=== PATIENT | female | born 1955 | race Caucasian/White ===

== ENCOUNTER 2024-06-03 07:39 | Outpatient (OUT) | payer MEDICARE, OTHER, SELFPAY ==
[2024-06-03 07:58] LABS: Basophils Absolute Auto 0.1 10^3/uL (0.0-0.1); Basophils Percent Auto 0.8 % (0.2-2.0); Eosinophils Absolute Auto 0.9 10^3/uL (0.0-0.7); Eosinophils Percent Auto 7.1 % (0.9-7.0); Hematocrit 41.1 % (36.0-48.0); Hemoglobin 12.9 g/dL (12.0-16.0); Immature Granulocytes Abs Auto 0.09 10^3/uL (0.00-0.03); Immature Granulocytes Pct Auto 0.7 % (0.0-0.5); Lymphocytes Absolute Auto 3.8 10^3/uL (1.2-3.8); Lymphocytes Percent Auto 31.5 % (20.5-60.0); Mean Corpuscular HGB Conc 31.4 g/dL (29.9-35.2); Mean Corpuscular Hemoglobin 28.7 pg (26.7-34.0); Mean Corpuscular Volume 91.3 fL (81.0-99.0); Mean Platelet Volume 8.7 fL (9.5-13.5); Monocytes Absolute Auto 0.8 10^3/uL (0.3-0.8); Monocytes Percent Auto 6.3 % (1.7-12.0); Neutrophils Absolute Auto 6.5 10^3/uL (1.4-6.5); Neutrophils Percent Auto 53.6 % (43.0-75.0); Platelet Count 280 10^3/uL (150-450); Red Cell Distribution Width 13.2 % (11.0-15.0); White Blood Count 12.1 10^3/uL (4.0-11.0)
[2024-06-03 08:20] LABS: Estimated Average Glucose 143 mg/dL; Glycohemoglobin A1C 6.6 % (4.5-6.2)
[2024-06-03 09:00] LABS: Alanine Aminotransferase 27 U/L (14-59); Albumin Level 3.8 g/dL (3.4-5.0); Alkaline Phosphatase 81 U/L (46-116); Anion Gap 12.8; Aspartate Amino Transferase 15 U/L (15-37); BUN Creatinine Ratio 14.5; Bilirubin Total 0.3 mg/dL (0.2-1.0); Chloride 104 mmol/L (98-107); Chol HDL Ratio 4.7; Cholesterol 217 mg/dL (<=200); Estimated GFR (African America >60 (>=60); Estimated GFR (Non-African Ame >60 (>=60); Globulin 3.9 g/dL; Glucose 137 mg/dL (74-106); HDL Cholesterol 46 mg/dL (40-60); Potassium 3.8 mmol/L (3.5-5.1); Sodium 140 mmol/L (136-145); Thyroid Stimulating Hormone 2.176 uIU/mL (0.358-3.740); Total Protein 7.7 g/dL (6.4-8.2); Triglycerides 139 mg/dL (<=150); VLDL CHOLESTEROL 27.8 mg/dL
== END 2024-06-03 07:40 | disposition home or self-care (01) ==
LOC: LAB 07:39
PROVIDERS: PCP Family Medicine; Visit Provider Family Medicine
DX: K21.9 Gastro-esophageal reflux disease without esophagitis (principal); E11.9 Type 2 diabetes mellitus without complications; H61.20 Impacted cerumen, unspecified ear; M25.50 Pain in unspecified joint; E78.5 Hyperlipidemia, unspecified; E03.9 Hypothyroidism, unspecified; R53.83 Other fatigue
CPT/HCPCS: 36415; 80053; 80061; 83036; 84439; 84443; 85025

== ENCOUNTER 2025-07-07 06:38 | Outpatient (OUT) | payer MEDICARE, OTHER, SELFPAY ==
--- OUTSIDE RECORDS SUMMARY | 2025-06-28 09:45 | XMS_ITS ---
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 Name Role Phone Ike Flores Primary Care Provider Allergies Allergen (clinical drug ingredient) Drug/Non Drug Allergy documented on EMR Reaction Allergy Type Onset Date Status Steroids steroids (uncoded) Unknown Allergy A ctive EPINEPHrine Unknown Drug Allergy Activ e erythromycin Erythromycin Unknown Drug Allergy A ctive Keflex Unknown Drug Allergy Active bacitracin Bacitracin Unknown Drug Allergy Activ e prednisone Prednisone red skin syndrome Drug Allergy Active Substance with sulfonamide structure and antibacterial mechanism of action (substance) Sulfa Antibiotics eyes swell shut Drug Allergy Active diclofenac Diclofenac hand swelling Drug Allergy A ctive Penicillin Unknown Drug Allergy Active Paxlovid Hives Drug Allergy Active REASON FOR VISIT yearly wellness exam, Follow Up- Ear Infection (Left Side) Medications Medication SIG (Take, Route, Frequency, Duration) Notes Start Date End Date Status Tylenol Arthritis Pain Active Ventolin HFA 108 (90 Base) MCG/ACT 1 puff as needed Inhalation every 4 hrs for 30 days PRN Active Tobramycin 0.3 % 1 drop into affected eye Ophthalmic Four times a day for 3 days 06/21/2025 Active Glimepiride 1 MG 1 tablet with breakf ast or the first main meal of the day Orally Once a day for 30 days 06/21/2025 Active Test Strips - use 1 strip dx: E11. 9 once daily for 90 days 02/06/2025 Active Torie Allergy 60 MG 1 tablet Orally Tw ice a day 06/21/2025 Active Cipro 500 MG 1 tablet Orally ever y 12 hrs for 14 days 06/21/2025 Active Social History Tobacco Use: Social History Observation Description Date Details (start date - stop date) Former Smoker 11/16/1973 - 08/16/2023 Tobacco Use/Smoking Question Answer Notes Patient is a former smoker When did you start smoking? 11/16/1973 When did you stop smoking? 08/16/2023 How long has it been since y ou last smoked? 1-3 months Additional Findings: Tobacco User Modera te cigarette smoker (10-19 cigs/day) AUDIT-C (Standard) Question Answer Notes Did you have a drink containing alcohol in the p ast year? No Points 0 Interpretation Negative Vital Signs Weight 184 lbs 06/28/2025 Height 64 in 06/28/2025 Blood pressure systolic 162 mm Hg 06/28/20 25 Blood pressure diastolic 82 mm Hg 025 BMI 31.58 kg/m2 06/28/2025 Encounters Encounter Location Date Provider Diagnosis [facility] [address] [place] [address] 06/28/2025 Ike Flores Type 2 Diabetes E11. 9 ; Pure hypercholesterolemia E78.00 and GERD (gastroesophageal reflux disease) K21.9 Assessments Encounter Date Diagnosis (ICD Code) Assessment Notes Treatment Notes Treatment Clinical Notes Section Notes 06/28/2025 Type 2 Diabetes (ICD -10 - E11.9) 06/28/2025 Pure hypercholesterolemia (ICD-10 - E78.00) 06/28/2025 GERD (gastroesophage al reflux disease) (ICD-10 - K21.9) Plan Of Treatment Medication Medication Name Sig Start Date Stop Date Notes Tobramycin 0.3 % 1 drop into affected eye Ophthalmic Four times a day for 3 days 06/21/2025 Cipro 500 MG 1 tablet Orally every 12 hrs for 14 days 04/2025 Pending Test Test Name Order Date HEMOGLOBIN A1C (GLYCO) 06/28/2025 IRON, TOTAL 06/28/2025 LIPID PANEL (CHOL/TRIG/HDL/LDL) 06/28/20 25 VITAMIN D, 25 LEVEL (TOTAL) 06/28/2025 Insulin Level 06/28/2025 THYROID PANEL (T4/TSH/FREE T3) 5 MM screening mammo BI 06/28/2025 CMP (COMP MET FOSTER) w/eGFR CKD-EPI 2024 CBC WITH DIFF 06/28/2025 Next Appt Details Provider Name:Ike Valdez Mark, 02:00:00 PM, [address] [place], [address], Progress Notes * Katja DEVLIN LDOB: [birth year] (70 yo F)Acc No.[id number]:06/28/2025 Progress Note Patient: Katja SALVADOR Provider: eHidi Flores ([facility])MD :1955 A ge:70 Y S ex:Female Date:06/28/2025 Address:[address] [id number] Check In:01:40 PM ESTCheck O ut:02:02 PM EST Subjective: * Chief Complaints: * Y early wellness examFollow Up- Ear Infection (Left Side) * HPI: G eneral: Ear dong much better no issues disudssed diet and preventive treatment. * ROS: E ENT: hearing changes d enies. v isual changes d enies.?non-healing mouth sores d enies. s wollen glands or neck lumps d enies. h oarseness d enies. s ore throat d enies. d ifficulty swallowing d enies. n ose bleeds d enies. n giorgio congestion d enies. e ar ache d enies. e ar discharge?denies. r inging in ears d enies. l ight sensitivity d enies. e ye pain d enies. b lurring d enies. e ye irritation d enies. d ouble vision d enies.?vision loss d enies. G eneral/Constitutional: Sweats: D enies. F atigue d enies. S leep problems d enies. A norexia d enies. M alaise d enies. W eight loss d enies.?Fatigue or Weakness d enies. F ever or Chills d enies. C ardiovascular: Shortness of Breath w/lying flat d enies. L ightheadedness/dizziness d enies. C hest tightness/ heavy pressure d enies. S welling of legs, ankles, or feet d enies. W aking up with shortness of breath d enies. C hest pain denies. P alpitations d enies. W eight gain d enies. R espiratory: Chronic or frequent cough d enies. C oughing up blood?denies. D ifficulty breathing d enies. P roductive cough d enies. S noring?denies. S hortness of breath that awakens from sleep (PND) d enies. C hest pain d enies. S putum production d enies. W heezing d enies. M usculoskeletal: Joint pain d enies. J oint Fluid d enies. B ack pain d enies. K nee pain d enies. N rafaela pain d enies. J oint Stiffness d enies. M uscle cramps d enies. W eakness of muscles d enies. A rthritis d enies. M uscle aches d enies. P ain in shoulder(s) d enies. S wollen joints d enies. * Active Problem List M54.12 Cervical radiculopat hy Modified On:09/24/2023U Status:confirmed E11.9 Type 2 Diabetes Modified On:10/05/2023U Status:confirmed E78.00 Pure hypercholestero lemia Modified On:09/24/2023U Status:confirmed D64.9 Anemia Modified On:10/05/2023U Status:confirmed M81.0 Osteoporosis Modified On:09/24/2023U Status:confirmed K21.9 GERD (gastroesophage al reflux disease) Modified On:10/05/2023U Status:confirmed L30.9 Dermatitis Modified On:09/21/2024 Status:confirmed * Medical History: * Surgical History: a ppendectomy MORE and BSO * Hospitalization/Major Diagno stic Procedure: D enies Past Hospitalization * Family History: F ather: diagnosed with Unspecified heart disease. M other: diagnosed with Diabetes mellitus without mention of complication, type II or unspecified type, not stated as uncontrolled, Other malignant neoplasm of unspecified site. * Social History: T obacco Use: T obacco Use/Smoking P atient is a f ormer smoker W hen did you start smoking? 0 11/16/1973 W hen did you stop smoking? 1 H ow long has it been since you last smoked??1-3 months A dditional Findings: Tobacco User M oderate cigarette smoker (10-19 cigs/day) D rug/Alcohol: A ALIYA-C (Standard) D id you have a drink containing alcohol in the past year? N o P oints 0 I nterpretation N egative * Medications: T akingAllegra Allergy(Fexofenadine HCl) 60 MG Tablet 1 tablet Orally Twice a day Cipro(Ciprofloxacin HCl) 500 MG Tablet 1 tablet Orally every 12 hrs Glimepiride 1 MG Tablet 1 tablet with breakfast or the first main meal of the day Orally Once a day Test Strips - - use 1 strip dx: E11.9 once daily Tobramycin 0.3 % Solution 1 drop into affected eye Ophthalmic Four times a day Tylenol Arthritis Pain Ventolin HFA(Albuterol Sulfate HFA) 108 (90 Base) MCG/ACT Aerosol Solution 1 puff as needed Inhalation every 4 hrs , Notes to Pharmacist: PRNMedication List reviewed and reconciled with the patientTaking Torie Allergy(Fexofenadine HCl) 60 MG Tablet 1 tablet Orally Twice a day Taking Cipro(Ciprofloxacin HCl) 500 MG Tablet 1 tablet Orally every 12 hrs Taking Glimepiride 1 MG Tablet 1 tablet with breakfast or the first main meal of the day Orally Once a day Taking Test Strips - - use 1 strip dx: E11.9 once daily Taking Tobramycin 0.3 % Solution 1 drop into affected eye Ophthalmic Four times a day Taking Tylenol Arthritis Pain Taking Ventolin HFA(Albuterol Sulfate HFA) 108 (90 Base) MCG/ACT Aerosol Solution 1 puff as needed Inhalation every 4 hrs , Notes to Pharmacist: PRNMedication List reviewed and reconciled with the patient * Allergies: E PINEPHrine: AllergyPenicillin: AllergyKeflex: AllergyBacitracin: AllergyErythromycin: AllergySulfa Antibiotics: eyes swell shut - AllergyPrednisone: red skin syndrome - Allergysteroids: AllergyDiclofenac: hand swelling - AllergyPaxlovid: Hives - Allergyno[Allergies Verified] Objective: * Vitals: W t:184lbs, Ht: 64 in, BP:162/82mm Hg, BMI:31.58Index, Ht-cm: 162.56 cm, Wt-k.46 kg. * Examination: P hysical Exam: GENERAL: w ell developed, well nourished, in no acute distress. HEAD: n ormocephalic/atraumatic. EYES: p upils equal, round and reactive to light, conjunctivae and sclerae normal. EARS: n o deformity or lesion of external ear, canals and TM appear normal bilaterally, TM's intact, not inflamed with normal light reflex, hearing grossly normal to conversational speech. NOSE: n o deformity, discharge, inflammation, or lesions.? MOUTH: m ucous membranes moist, normal oropharynx and posterior pharynx without lesions or exudates, tongue normal, dentition normal. NECK: n rafaela supple, no masses or palpable cervical nodes, trachea midline, thyroid without nodules, masses, tenderness, or enlargement. CHEST: n o chest wall deformity, no chest wall tenderness.? LUNGS: n ormal respiratory effort and clear to auscultation, no wheezes, rales, or rhonchi, good air exchange. CARDIO: r egular rate and rhythm, normal S1 and S2, nor murmur, rub, or gallop. PULSES: n ormal capillary refill. ABDOMEN: s oft, non-distended, non-tender, no masses. MUSCULOSKELETAL: n o deformity or scoliosis noted, normal range of motion, joints normal, no erythema, edema, effusion, or ecchymosis. EXTREMITY: n o clubbing, cyanosis, edema, or deformity with normal ROM in both upper and lower bilateral extremities. NEUROLOGIC: g rossly normal. SKIN: n o rashes, ulcerations, or suspicious lesions. LYMPH NODES: n o cervical adenopathy, nodes normal. MENTAL STATUS: a lert and oriented x3, normal mood and affect. Assessment: * Assessment: 1. T ype 2 Diabetes - E11.9 (Primary) 2 . P ure hypercholesterolemia - E78.00 3 . G ERD (gastroesophageal reflux disease) - K21.9 Plan: * Treatment: 2. P ure hypercholesterolemia L AB: HEMOGLOBIN A1C (GLYCO) L AB: IRON, TOTAL L AB: LIPID PANEL (CHOL/TRIG/HDL/LDL) L AB: VITAMIN D, 25 LEVEL (TOTAL) L AB: Insulin Level L AB: THYROID PANEL (T4/TSH/FREE T3) L AB: CMP (COMP MET FOSTER) w/eGFR CKD-EPI L AB: CBC WITH DIFF 3. G ERD (gastroesophageal reflux disease) L AB: HEMOGLOBIN A1C (GLYCO) L AB: IRON, TOTAL L AB: LIPID PANEL (CHOL/TRIG/HDL/LDL) L AB: VITAMIN D, 25 LEVEL (TOTAL) L AB: Insulin Level L AB: THYROID PANEL (T4/TSH/FREE T3) L AB: CMP (COMP MET FOSTER) w/eGFR CKD-EPI L AB: CBC WITH DIFF * Procedure Codes: * Preventive Medicine: Screenings/Counseling: B PA ACTION PLAN Above Normal BMI Follow-up D ietary management education, guidance, and counseling * * Sign off status: Completed Visit Status: C HK (Check Out) true * Provider: Heidi Flores ([facility])MD Date: 0 06/28/2025 Generated for Printi ng/Faxing/eTransmitting on: 07/07/2025 06:41 AM EDT History and Physical Notes * HPI (History of Present Illness) Category Sub-Category Detail Notes Category Not es General Ear dong much better no issues disudssed diet and preventive treatment Examination Category Sub-Category Detail Notes Category Not es Physical Exam GENERAL: well developed, well nourished, in no acute distress HEAD: normocephalic/atraum atic EYES: pupils equal, round and reactive to light, conjunctivae and sclerae normal EARS: no deformity or lesi on of external ear, canals and TM appear normal bilaterally, TM's intact, not inflamed with normal light reflex, hearing grossly normal to conversational speech NOSE: no deformity, discha rge, inflammation, or lesions MOUTH: mucous membranes [place] st, normal oropharynx and posterior pharynx without lesions or exudates, tongue normal, dentition normal NECK: neck supple, no mass es or palpable cervical nodes, trachea midline, thyroid without nodules, masses, tenderness, or enlargement CHEST: no chest wall deform ity, no chest wall tenderness LUNGS: normal respiratory e ffort and clear to auscultation, no wheezes, rales, or rhonchi, good air exchange CARDIO: regular rate and rhy thm, normal S1 and S2, nor murmur, rub, or gallop PULSES: normal capillary ref ill ABDOMEN: soft, non-distended, non-tender, no masses RECTAL: MUSCULOSKELETAL: no deformity or scol iosis noted, normal range of motion, joints normal, no erythema, edema, effusion, or ecchymosis EXTREMITY: no clubbing, cyanosi s, edema, or deformity with normal ROM in both upper and lower bilateral extremities NEUROLOGIC: grossly normal SKIN: no rashes, ulceratio ns, or suspicious lesions LYMPH NODES: no cervical adenopat hy, nodes normal MENTAL STATUS: alert and oriented x 3, normal mood and affect
--- OUTSIDE RECORDS SUMMARY | 2025-06-28 10:24 | XMS_ITS ---
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 Name Role Phone Ike Flores Primary Care Provider [phone] REASON FOR VISIT DM med issue Medications Medication SIG (Take, Route, Frequency, Duration) Notes Start Date End Date Status Cipro 500 MG 1 tablet Orally ever y 12 hrs for 14 days 06/21/2025 Unknown Torie Allergy 60 MG 1 tablet Orally Tw ice a day 06/21/2025 Unknown metFORMIN HCl ER 500 MG TAKE 1 TABLET BY MOUTH IN THE EVENING WITH A MEAL Oral for 30 Days Active Ventolin HFA 108 (90 Base) MCG/ACT 1 puff as needed Inhalation every 4 hrs for 30 days PRN Unknown Tobramycin 0.3 % 1 drop into affected eye Ophthalmic Four times a day for 3 days 06/21/2025 Unknown Test Strips - use 1 strip dx: E11. 9 once daily for 90 days 02/06/2025 Unknown Tylenol Arthritis Pain Unknown Encounters Encounter Location Date Provider Diagnosis [facility] [address] [place] [address] 06/28/2025 Ike Flores Acute otitis media, unspecified otitis media type H66.90 Assessments Encounter Date Diagnosis (ICD Code) Assessment Notes Treatment Notes Treatment Clinical Notes Section Notes 06/28/2025 Acute otitis media, unspecified otitis media type (ICD-10 - H66.90) Plan Of Treatment Medication Medication Name Sig Start Date Stop Date Notes Glimepiride 1 MG 1 tablet with breakf ast or the first main meal of the day Orally Once a day 06/21/2025 Next Appt Details Provider Name:Ike Flores, 02:00:00 PM, [address] [place], [address], Progress Notes * Katja DEVLIN LDOB: 3 (70 yo F)Acc No.[id number]:06/28/2025 Patient: Katja SALVADOR :1955 A ge:70 Y S ex:Female Address:[address] [facility], [place] [address] * Refills Stop Glimepiride Tablet, 1 MG, Orally, 1 tablet with breakfast or the first main meal of the day, Once a day Subjective: * Chief Complaints: * D M med issue * Medical History: * Surgical History: * Hospitalization/Major Diagno stic Procedure: * Medications: T akingmetFORMIN HCl ER 500 MG Tablet Extended Release 24 Hour TAKE 1 TABLET BY MOUTH IN THE EVENING WITH A MEAL Oral Taking metFORMIN HCl ER 500 MG Tablet Extended Release 24 Hour TAKE 1 TABLET BY MOUTH IN THE EVENING WITH A MEAL Oral DiscontinuedGlimepiride 1 MG Tablet 1 tablet with breakfast or the first main meal of the day Orally Once a day Discontinued Glimepiride 1 MG Tablet 1 tablet with breakfast or the first main meal of the day Orally Once a day UnknownAllegra Allergy(Fexofenadine HCl) 60 MG Tablet 1 tablet Orally Twice a day Cipro(Ciprofloxacin HCl) 500 MG Tablet 1 tablet Orally every 12 hrs Test Strips - - use 1 strip dx: E11.9 once daily Tobramycin 0.3 % Solution 1 drop into affected eye Ophthalmic Four times a day Tylenol Arthritis Pain Ventolin HFA(Albuterol Sulfate HFA) 108 (90 Base) MCG/ACT Aerosol Solution 1 puff as needed Inhalation every 4 hrs , Notes to Pharmacist: PRNRosaline Torie Allergy(Fexofenadine HCl) 60 MG Tablet 1 tablet Orally Twice a day Unknown Cipro(Ciprofloxacin HCl) 500 MG Tablet 1 tablet Orally every 12 hrs Unknown Test Strips - - use 1 strip dx: E11.9 once daily Unknown Tobramycin 0.3 % Solution 1 drop into affected eye Ophthalmic Four times a day Unknown Tylenol Arthritis Pain Unknown Ventolin HFA(Albuterol Sulfate HFA) 108 (90 Base) MCG/ACT Aerosol Solution 1 puff as needed Inhalation every 4 hrs , Notes to Pharmacist: PRN Objective: * Vitals: * Physical Examination: Assessment: * Assessment: 1. A cute otitis media, unspecified otitis media type - H66.90 Plan: * Treatment: * Procedure Codes: * true * Date: Generated for Shanta coyle/Tata/Elenaitting on: 0 07/07/2025 06:41 AM EDT
--- OUTSIDE RECORDS SUMMARY | 2025-07-03 04:37 | XMS_ITS ---
Author Organization [facility] in [place] Address [address] [place] [address] Care Team Providers Care Cook Apprentice Name Role Phone Ike Flores Primary Care Provider [phone] Reason For Referral Diagnosis 1 Cerumen impaction (H 61.20) Referral Organization [facility] Referring Provider First Name Ike Referring Provider Last Name Mark Referring Provider [facility] icine Referred Provider Dolores Britton Referred Provider Specialty Otolaryngolo gy Referral Priority Routine REASON FOR VISIT Cerumen Impaction Encounters Encounter Location Date Provider Diagnosis [facility] [address] [place] [address] 07/03/2025 Ike Flores Cerumen impaction H61.20 Assessments Encounter Date Diagnosis (ICD Code) Assessment Notes Treatment Notes Treatment Clinical Notes Section Notes 07/03/2025 Cerumen impaction (ICD-10 - H61.20) Plan Of Treatment Referrals Referral Date Details 07/04/2025 07/04/2025, Dolores florentino Next Appt Details Provider Name:Ike Valdez Tripjason, 02:00:00 PM, [address] [place], [address], Progress Notes * Katja DEVLIN LDOB: (70 yo F)Acc No.[id number]:07/03/2025 Patient: Ciro Katja MOREL :1955 A ge:70 Y S ex:Female Address:[address] [place] [address] Subjective: * Chief Complaints: * C erumen Impaction * Medical History: * Surgical History: * Hospitalization/Major Diagno stic Procedure: * Medications: Objective: * Vitals: * Physical Examination: Assessment: * Assessment: 1. C erumen impaction - H61.20 (Primary) Plan: * Treatment: * Procedure Codes: * true * Date: Generated for Shanta coyle/Tata/eTeldonsmitting on: 0 07/07/2025 06:41 AM EDT Consultation Request Notes Referral Date Referring Provider Referred Provider Not es 07/04/2025 Ike Flores Hilary
--- OUTSIDE RECORDS SUMMARY | 2025-07-07 06:40 | XMS_ITS | Continuity of Care Document ---
Author Name [facility] Organization [facility] Care Team Providers Care Home Teaching Grades 9 Thru 12 Teacher Name Role Phone [facility] Unavailable Unavailable Immunizations Combined list of available immunizations from the Department of Defense and Veterans Affairs facilities. Immunization Series Date Given Administered By Site Reaction Lot Number CVX Code Drug Compounding Pharmacy Technician Status Comments Source Tdap 2021 ASIF RAMIREZ () Not Given Tdap [facility] COVID-19, mRNA, LNP-S, PF, 30 mcg/0.3 mL dose 2021 [place] (PFR) Not Given COVID-19, mRNA, LNP-S, PF, 30 mcg/0.3 mL dose [facility] Social History Combined list of available smoking, tobacco, and other social history from Department of Defense and Veterans Affairs facilities. Social History Type Response Date Comment [facility] e This section is an empty social history section. [facility]
--- OUTSIDE RECORDS SUMMARY | 2025-07-07 06:41 | XMS_ITS | Clinical Summary ---
Author Organization [facility] Address [address] [place] [address] Care Team Providers Care Sewing Department Supervisor Name Role Phone Russ Flores MD Primary Care Provider [phone] Social History Tobacco Use Types Packs/Day Years Used Date Smoking Tobacco: Never Assessed Comments Unknown Sex and Gender Information Value Date Recorded Sex Assigned at Not on file Legal Sex Female 2:46 PM EDT Gender Identity Not on file Sexual Orientation Not on file Plan of Treatment Upcoming Encounters Date Type Department Care Team (Late st Contact Info) Description 07/10/2025 10:00 AM EDT Office Visit [facility] [address] [place] [id number] Dolores Britton MD [address] [place] [address] Health Maintenance Due Date Last Done Comments CT Colonography 1955 Colonoscopy 1955 Colorectal Cancer Screening 1955 FIT-DNA 1955 FIT 1955 FOBT 1955 Sigmoidoscopy 1955 Mammogram 1993 Pneumococcal Vaccine: 65+ Years (1 of 1 - PCV) 003 Influenza Vaccine (#1) 2025 Insurance MEDICARE Care Teams Sewing Department Supervisor Relationship Specialty Start Date End Date Russ Flores MD [address] [place] [id number] PCP - General Family Medicine 07/05/25
--- OUTSIDE RECORDS SUMMARY | 2025-07-07 06:41 | XMS_ITS | Patient Health Record ---
Author Organization [facility] in [place] Address [address] [place] [address] Care Team Providers Care Director Of Business Systems Name Role Phone Ike Flores Primary Care Provider Sophia Peck Unavailable [phone] Allergies Allergen (clinical drug ingredient) Drug/Non Drug [...] Allergy Active Paxlovid Hives Drug Allergy Active Reason For Referral Diagnosis 1 Cerumen impaction (H 61.20) Referral Organization [facility] Medicine Referring Provider First Name Ike Referring Provider Last Name Mark Referring Provider Speciality Family Med bib Referred Provider Dolores Britton Referred Provider Specialty Otolaryngolo gy Referral Priority Routine Medications Medication SIG (Take, Route, Frequency, Duration) Notes Start Date End Date Status Cipro 500 MG 1 tablet Orally ever y 12 hrs for 14 days 06/21/2025 Unknown Torie Allergy 60 MG 1 tablet Orally Tw ice a day 06/21/2025 Unknown metFORMIN HCl ER 500 MG TAKE 1 TABLET BY MOUTH IN THE EVENING WITH A MEAL Oral for 30 Days Active Tobramycin 0.3 % 1 drop into affected eye Ophthalmic Four times a day for 3 days 06/21/2025 Unknown Test Strips - use 1 strip dx: E11. 9 once daily for 90 days 02/06/2025 Unknown Ventolin HFA 108 (90 Base) MCG/ACT 1 puff as needed Inhalation every 4 hrs for 30 days PRN Unknown Tylenol Arthritis Pain Unknown Social History Tobacco Use: Social History Observation [...] User Modera te cigarette smoker (10-19 cigs/day) Alcohol Screen (Audit-C) Question Answer Notes Did you have a drink contain ing alcohol in the past year? Yes How often did you have 6 or more drinks on one occasion in the past year? Never (0 point) How many drinks did you have on a typical day when you were drinking in the past year? 1 or 2 drinks (0 point) How often did you have a dri nk containing alcohol in the past year? Less than monthly (1 point) Points 1 Interpretation Negative AUDIT-C (Standard) Question Answer Notes Did you have a drink containing alcohol in the p ast year? No Points 0 Interpretation Negative Problems Problem Type SNOMED Code ICD Code Onset Dates Problem Status W/U Status Risk Notes Problem Gastroesophageal reflux disease (334123099) GERD (gastroesophageal reflux disease) (K21.9) Active confirmed Problem Cervical radiculopathy (90418137) Cervical radiculopathy (M54.12) Active confirmed Problem Anemia (970132432) Anemia (D64.9) Active confir med Problem Dermatitis (937796950) Dermatitis (L30.9) Active confirmed Problem Osteoporosis (91646594) Osteoporosis (M81.0) Active confirmed Problem Diabetes mellitus type 2 (disorder) (76887901) Type 2 Diabetes (E11.9) Active confirmed Problem Pure hypercholesterolemia (986433913) Pure hypercholesterolemia (E78.00) Active confirmed Vital Signs Temperature 98.9 degrees Fahrenheit 06/21/2025 Blood pressure diastolic 82 mm Hg 06/28/2025 Height 64 in 06/28/2025 Blood pressure systolic 162 mm Hg 06/28/2025 Weight 184 lbs 06/28/2025 BMI 31.58 kg/m2 06/28/2025 Encounters Encounter Location Date Provider Diagnosis [facility] [id number] [place] [address] 07/03/2025 Ike Hoy Cerumen impaction H6 1.[address] [address] 09/12/2024 Sophia Peck Type 2 Diabetes E11. 9 [facility] [address] [place] [place] [address] 02/06/2025 Ike Hoy [facility] [address] [place] [place] [address] 06/13/2025 Ike Hoy [facility] [address] [place] [address] 06/28/2025 Ike Hoy Acute otitis media, unspecified otitis media type H66.[address] [address] 09/21/2024 Ike Hoy Dermatitis L30.9 and Type 2 Diabetes E11.[address] [address] 06/28/2025 Ike Hoy Type 2 Diabetes E11. 9 ; Pure hypercholesterolemia E78.00 and GERD (gastroesophageal reflux disease) K21.[address] [address] 06/21/2025 Ike Hoy Acute otitis media, unspecified otitis media type H66.90 ; Otalgia, unspecified laterality H92.09 and Type 2 Diabetes E11.9 Assessments Encounter Date Diagnosis (ICD Code) Assessment Notes Treatment Notes Treatment Clinical Notes Section Notes 09/21/2024 Dermatitis (ICD-10 - L30.9) 09/21/2024 Type 2 Diabetes (ICD -10 - E11.9) 06/28/2025 Type 2 Diabetes (ICD -10 - E11.9) 06/28/2025 Pure hypercholesterolemia (ICD-10 - E78.00) 06/21/2025 Acute otitis media, unspecified otitis media type (ICD-10 - H66.90) You have been prescribed antibiotics for otitis media. Antibiotics may bother your stomach, so try taking them with a light meal (unless instructed otherwise by your pharmacist). It is important to take them until they are finished. You can use [id number] acetaminophen or ibuprofen if needed for pain. You have been prescribed antibiotics. You should be extra vigilant about hand washing or using hand colon and rectal surgeon gel. You should follow up with your Primary Care Physician or return to clinic if not improving in the next 3-5 days. 09/12/2024 Type 2 Diabetes (ICD -10 - E11.9) 06/28/2025 Acute otitis media, unspecified otitis media type (ICD-10 - H66.90) 07/03/2025 Cerumen impaction (ICD-10 - H61.20) 06/21/2025 Otalgia, unspecified laterality (ICD-10 - H92.09) 06/21/2025 Type 2 Diabetes (ICD -10 - E11.9) 06/28/2025 GERD (gastroesophage al reflux disease) (ICD-10 - K21.9) Plan Of Treatment Pending Test Test Name Order Date CMP (COMPLETE METABOLIC PANEL) 3 HEMOGLOBIN A1C (GLYCO) 10/05/2023 HEMOGLOBIN A1C (GLYCO) 06/28/2025 IRON, TOTAL 06/28/2025 IRON, TOTAL 10/05/2023 LIPID PANEL (CHOL/TRIG/HDL/LDL) 10/05/20 23 LIPID PANEL (CHOL/TRIG/HDL/LDL) 06/28/20 25 CBC WITH DIFF 10/05/2023 VITAMIN D, 25 LEVEL (TOTAL) 10/05/2023 VITAMIN D, 25 LEVEL (TOTAL) 06/28/2025 Insulin Level 06/28/2025 THYROID PROFILE WITH TSH 05/27/2024 THYROID PANEL (T4/TSH/FREE T3) 3 THYROID PANEL (T4/TSH/FREE T3) 5 MM screening mammo BI 06/28/2025 CMP (COMP MET FOSTER) w/eGFR CKD-EPI 2024 CBC WITH DIFF 06/28/2025 Next Appt Details Provider Name:Ike Flores, 02:00:00 PM, [address] [place], [address], Insurance Providers Payer Name Payer Address Payer Phone Subscriber Number Group Number Insured Name Patient Relationship to Insured Coverage Start Date Coverage End Date MEDICARE [place] [address] [place] [address] [phone] [id number] Katja Brady Self - patient is the insured [facility] [address] [place] [phone] [id number] Katja Brady Self - patient is the insured Medical (General) History Medical History History ICD Code Cervical radiculopathy M54.12 Type 2 Diabetes E11.9 Pure hypercholesterolemia E78.00 Anemia D64.9 Osteoporosis M81.0 GERD (gastroesophageal reflux disease) K 21.9 Dysfunctional uterine bleeding N93.8 Surgical History Surgery Date(Month/Year) MORE and BSO appendectomy
[2025-07-07 07:07] LABS: Hematocrit 38.5 % (36.0-48.0); Hemoglobin 12.7 g/dL (12.0-16.0); Immature Granulocytes Abs Auto 0.03 10^3/uL (0.00-0.03); Immature Granulocytes Pct Auto 0.4 % (0.0-0.5); Lymphocytes Absolute Auto 3.5 10^3/uL (1.2-3.8); Mean Corpuscular HGB Conc 33.0 g/dL (29.9-35.2); Mean Corpuscular Hemoglobin 29.8 pg (26.7-34.0); Mean Corpuscular Volume 90.4 fL (81.0-99.0); Platelet Count 298 10^3/uL (150-450); Red Blood Count 4.26 10^6/uL (4.20-5.40); White Blood Count 8.5 10^3/uL (4.0-11.0)
--- NOTE | 2025-07-07 07:50 | MM_ITS ---
Patient Name: SILVA DEVLIN MR#: [id number] : 1955 Exam Date: 07/07/2025 Ordering Doctor: DR BETH LISA . RADIOLOGY REPORT PROCEDURE: MM TOMOSYNTHESIS SCREENING BI COMPARISON: MG MAMM SCREEN 3D [place] CAD, 08/27/2022. MG MAMM SCREEN 3D [place] CAD, 04/22/2021. MG MAMM SCREEN [place] W CAD, 09/20/2019. INDICATIONS: Screening Calculator Name NCI Breast Cancer Risk Assessment Tool 5 Year Breast Cancer Risk 2.00% Lifetime Breast Cancer Risk 5.10% Personal Breast Cancer No Personal Ovarian Cancer No Treatments None Family Cancers Mother with colon cancer at age 82; Father with prostate cancer at age ~80. LOCATION: [facility] BREAST COMPOSITION: The breasts are heterogeneously dense, which may obscure small masses. FINDINGS: DIAGNOSTIC CATEGORY 0--INCOMPLETE: NEED ADDITIONAL IMAGING EVALUATION. LEFT BREAST: No significant suspicious finding. RIGHT BREAST: MASS (finding with convex borders visible on two orthogonal views), characterized by benign circumscribed morphology, mid-breast depth, Additional views to consider include spot compression views in the craniocaudal and oblique projections. RECOMMENDATIONS: ADDITIONAL MAMMOGRAPHIC VIEWS REQUIRED: RIGHT BREAST - spot cc AND mlo AND TRUE LATERAL ULTRASOUND: RIGHT BREAST Dictated by: Oskar Albert MD on 07/07/2025 at 10:11 Approved by: Oskar Albert MD on 07/07/2025 at 10:15
[2025-07-07 08:29] LABS: Iron 74.0 ug/dL (50.0-170.0)
[2025-07-07 08:41] LABS: Alanine Aminotransferase 32 U/L (14-59); Albumin Globulin Ratio 1.0; Albumin Level 3.9 g/dL (3.4-5.0); Alkaline Phosphatase 70 U/L (46-116); Anion Gap 12.0; Aspartate Amino Transferase 16 U/L (15-37); Blood Urea Nitrogen 11.0 mg/dL (7.0-18.0); Calcium 9.0 mg/dL (8.5-10.1); Carbon Dioxide 28.8 mmol/L (21.0-32.0); Chloride 106 mmol/L (98-107); Cholesterol 232 mg/dL (<=200); Estimated GFR (African America >60 (>=60 mL/min/1.73m^2); Estimated GFR (Non-African Ame >60 (>=60 mL/min/1.73m^2); Free T3 1.88 pg/mL (2.18-3.98); Globulin 4.0 g/dL; Glucose 126 mg/dL (74-106); HDL Cholesterol 42 mg/dL (40-60); Potassium 3.8 mmol/L (3.5-5.1); Sodium 143 mmol/L (136-145); Thyroid Stimulating Hormone 1.820 uIU/mL (0.358-3.740); Total Protein 7.9 g/dL (6.4-8.2); Triglycerides 143 mg/dL (<=150); VLDL CHOLESTEROL 28.6 mg/dL
== END 2025-07-07 06:39 | disposition home or self-care (01) ==
LOC: LAB 06:39
PROVIDERS: PCP Family Medicine; Visit Provider Family Medicine
DX: E78.00 Pure hypercholesterolemia, unspecified (principal); E11.9 Type 2 diabetes mellitus without complications; K21.9 Gastro-esophageal reflux disease without esophagitis; Z12.31 Encounter for screening mammogram for malignant neoplasm of breast; Z80.0 Family history of malignant neoplasm of digestive organs; Z80.42 Family history of malignant neoplasm of prostate
CPT/HCPCS: 36415; 77063; 77067; 80053; 80061; 82306; 83036; 83525; 83540; 84436; 84443; 84481; 85025

== ENCOUNTER 2025-08-08 08:32 | Outpatient (OUT) | payer MEDICARE, OTHER, SELFPAY ==
[2025-08-08 10:59] LABS: Free T3 3.47 pg/mL (2.18-3.98); Thyroid Stimulating Hormone 1.013 uIU/mL (0.358-3.740)
== END 2025-08-08 08:33 | disposition home or self-care (01) ==
LOC: LAB 08:39
PROVIDERS: PCP Family Medicine; Visit Provider Family Medicine
DX: E03.9 Hypothyroidism, unspecified (principal)
CPT/HCPCS: 36415; 84436; 84443; 84481